=== PATIENT | male | born 1955 | race Caucasian/White ===

== ENCOUNTER 2020-02-27 14:21 | Outpatient (RCR) | payer MEDICARE | END 2020-05-27 | disposition home or self-care (01) | LOC: ONC 14:21 | PROVIDERS: ATTEND Radiology Radiation Oncology | DX: C61 Malignant neoplasm of prostate (principal); E11.9 Type 2 diabetes mellitus without complications; I10 Essential (primary) hypertension; Z87.891 Personal history of nicotine dependence | CPT/HCPCS: 99204 ==